=== PATIENT | female | born 1955 | race Caucasian/White ===

== ENCOUNTER 2023-03-31 17:01 | Emergency (ER) | payer OTHER ==
[2023-03-31 17:06] VITALS: RESP 17; TEMP 98.1; BMI 24.1
[2023-03-31 17:46] VITALS: BP 141/85; PULSE 96
[2023-03-31 18:53] LABS: BASO % 0.4 % (0-2.0); EOS % 1.3 % (0-4.5); HEMATOCRIT 42.1 % (32.4-45.2); HEMOGLOBIN 13.9 GM/dL (10.7-15.3); LYMPH % 17.2 % (8-40); MCH 31.2 pg (25.7-33.7); MEAN CELL VOLUME 94.5 fl (80-96); MEAN PLT VOLUME 9.4 fl (7.5-11.1); MONO % 7.1 % (3.8-10.2); PLATELET COUNT 130 10^3/uL (134-434); RBC 4.45 M/mm3 (3.60-5.2); RDW 13.1 % (11.6-15.6); WHITE BLOOD COUNT 6.2 K/mm3 (4.0-10.0)
[2023-03-31 19:00] LABS: INR 1.1 (0.83-1.09); PROTHROMBIN TIME (PATIENT) 12.8 SEC (9.7-13.0)
[2023-03-31 19:24] LABS: POTASSIUM 4.1 mmol/L (3.5-5.1)
[2023-03-31 19:26] LABS: ALBUMIN 4.2 g/dl (3.4-5.0); BLOOD UREA NITROGEN 18.2 mg/dL (7-18); CALCIUM 9.9 mg/dL (8.5-10.1)
[2023-03-31 19:29] LABS: CREATININE 0.8 mg/dL (0.55-1.3)
[2023-03-31 19:31] LABS: BILIRUBIN,TOTAL 0.4 mg/dL (0.2-1); TOT PROT 7.5 g/dl (6.4-8.2)
== END 2023-03-31 19:59 | disposition home or self-care (01) ==
LOC: JER 17:01
DX: R41.82 Altered mental status, unspecified (principal); T50.905A Adverse effect of unspecified drugs, medicaments and biological substances, initial encounter
CPT/HCPCS: 36415; 70450-TC; 80053; 84484; 85025; 85610; 85730; 93005; 93010; 99285-25